=== PATIENT | male | born 1960 | race Caucasian/White ===

== ENCOUNTER → 2016-08-20 | Outpatient (CLI) | payer MEDICAID, OTHER ==
[~2016-08-20] MED LIST: Albuterol 0.083% 2.5 MG/3 ML Neb Soln NEB ONE
== END ==
LOC: MW.RT 07:44
PROVIDERS: ATTEND Internal Medicine
DX: J43.9 Emphysema, unspecified (principal)
CPT/HCPCS: 94060; 94729

== ENCOUNTER 2021-10-18 23:55 | Inpatient (IN) | payer MEDICARE, OTHER ==
[2021-10-19] MEDS ORDERED: methylPREDNISolone Sodium Succinate 40 MG/1 ML SDV IVPUSH ONE (00:16)
[2021-10-19] MEDS ORDERED: Albuterol/Ipratropium 3.0-0.5 MG/3 ML Neb Soln NEB ONE ×2 (00:16→01:15)
[2021-10-19 01:53] LABS: BLOOD UREA NITROGEN,BUN 6 mg/dL (7.0-18.0); CARBON DIOXIDE,CO2 26.5 mmol/L (21.0-32.0); CHLORIDE,CL 75 mmol/L (98-107); GLUCOSE RANDOM 86 mg/dL (74-106); POTASSIUM,K 4.4 mmol/L (3.5-5.1)
[2021-10-19 01:59] LABS: SODIUM,NA 109 mmol/L (136-148)
[2021-10-19] MEDS ORDERED: Doxycycline 100 MG in Sodium Chloride 0.9% 100 ML IV STA (02:09)
[2021-10-19] MEDS ORDERED: Sodium Chloride 0.9% 1,000 ML IV SCH (02:15)
[2021-10-19] MEDS: Albuterol/Ipratropium 3.0-0.5 MG/3 ML Neb Soln NEB PRN ×2 (07:43→17:06)
[2021-10-19 07:57] LABS: BLOOD UREA NITROGEN,BUN 9 mg/dL (7.0-18.0); CARBON DIOXIDE,CO2 19.6 mmol/L (21.0-32.0); CHLORIDE,CL 78 mmol/L (98-107); GLUCOSE RANDOM 117 mg/dL (74-106); POTASSIUM,K 4.9 mmol/L (3.5-5.1)
[2021-10-19 08:00] LABS: SODIUM,NA 109 mmol/L (136-148)
[2021-10-19] MEDS: Nicotine 14 MG/24 Hr Patch TRDERM SCH (09:21)
[2021-10-19] MEDS ORDERED: LORazepam 2 MG/ML SDV IVPUSH PRN (09:27)
[2021-10-19] MEDS: Folic Acid 50 MG/10 ML MDV SUBCUT SCH (11:15)
[2021-10-19] MEDS: Thiamine 200 MG/2 ML MDV IVPUSH SCH (11:30)
[2021-10-19 12:56] LABS: BLOOD UREA NITROGEN,BUN 10 mg/dL (7.0-18.0); CHLORIDE,CL 79 mmol/L (98-107); GLUCOSE RANDOM 101 mg/dL (74-106)
[2021-10-19 12:58] LABS: SODIUM,NA 108 mmol/L (136-148)
[2021-10-19] MEDS ORDERED: Sodium Chloride 3% 500 ML IV SCH (13:30)
[2021-10-19] MEDS: Heparin Sodium 5,000 Units/ML Vial SUBCUT SCH ×2 (14:35→21:03)
[2021-10-19] MEDS: Doxycycline 100 MG Cap PO SCH ×2 (14:35→20:25)
[2021-10-19 18:15] LABS: BLOOD UREA NITROGEN,BUN 12 mg/dL (7.0-18.0); CARBON DIOXIDE,CO2 25.3 mmol/L (21.0-32.0); CHLORIDE,CL 81 mmol/L (98-107); GLUCOSE RANDOM 113 mg/dL (74-106); POTASSIUM,K 4.8 mmol/L (3.5-5.1)
[2021-10-19 18:18] LABS: SODIUM,NA 113 mmol/L (136-148)
[2021-10-19] MEDS: FORMOTEROL INH SCH (20:32)
[2021-10-19] MEDS: BUDESONIDE INH SCH (20:32)
[2021-10-19] MEDS: Dextrose 5% in Water 1,000 ML IV SCH (22:52)
[2021-10-20] MEDS: Albuterol/Ipratropium 3.0-0.5 MG/3 ML Neb Soln NEB PRN ×3 (01:21→20:16)
[2021-10-20] MEDS: Heparin Sodium 5,000 Units/ML Vial SUBCUT SCH ×3 (05:49→20:53)
[2021-10-20] MEDS: Thiamine 200 MG/2 ML MDV IVPUSH SCH (08:00)
[2021-10-20] MEDS: FORMOTEROL INH SCH ×2 (08:01→20:08)
[2021-10-20] MEDS: Nicotine 14 MG/24 Hr Patch TRDERM SCH (08:01)
[2021-10-20] MEDS: Folic Acid 50 MG/10 ML MDV SUBCUT SCH (08:01)
[2021-10-20] MEDS: methylPREDNISolone Sodium Succinate 40 MG/1 ML SDV IVPUSH SCH (08:01)
[2021-10-20] MEDS: BUDESONIDE INH SCH ×2 (08:01→20:08)
[2021-10-20] MEDS: Doxycycline 100 MG Cap PO SCH ×2 (08:02→20:07)
[2021-10-20] MEDS: Dextrose 5% in Water 1,000 ML IV SCH (09:33)
[2021-10-20 14:35] LABS: BLOOD UREA NITROGEN,BUN 16 mg/dL (7.0-18.0); CARBON DIOXIDE,CO2 25.9 mmol/L (21.0-32.0); CHLORIDE,CL 85 mmol/L (98-107); GLUCOSE RANDOM 196 mg/dL (74-106); POTASSIUM,K 3.8 mmol/L (3.5-5.1)
[2021-10-20 14:41] LABS: SODIUM,NA 117 mmol/L (136-148)
[2021-10-20] MEDS ORDERED: Lisinopril 10 MG Tab PO ONE (20:00)
[2021-10-20 21:52] LABS: BLOOD UREA NITROGEN,BUN 16 mg/dL (7.0-18.0); CARBON DIOXIDE,CO2 25.3 mmol/L (21.0-32.0); CHLORIDE,CL 87 mmol/L (98-107); GLUCOSE RANDOM 186 mg/dL (74-106); POTASSIUM,K 3.6 mmol/L (3.5-5.1); SODIUM,NA 121 mmol/L (136-148)
[2021-10-20] MEDS: guaiFENesin/Dextromethorphan 100-10 MG/5 ML Soln 10 ML Cup PO PRN (22:16)
[2021-10-21] MEDS: guaiFENesin/Dextromethorphan 100-10 MG/5 ML Soln 10 ML Cup PO PRN ×3 (03:53→20:28)
[2021-10-21] MEDS: Albuterol/Ipratropium 3.0-0.5 MG/3 ML Neb Soln NEB PRN ×3 (03:57→20:38)
[2021-10-21] MEDS: Heparin Sodium 5,000 Units/ML Vial SUBCUT SCH ×3 (05:55→20:49)
[2021-10-21 07:45] LABS: BLOOD UREA NITROGEN,BUN 13 mg/dL (7.0-18.0); CARBON DIOXIDE,CO2 26.5 mmol/L (21.0-32.0); CHLORIDE,CL 90 mmol/L (98-107); GLUCOSE RANDOM 107 mg/dL (74-106); POTASSIUM,K 3.4 mmol/L (3.5-5.1); SODIUM,NA 126 mmol/L (136-148)
[2021-10-21] MEDS: Nicotine 14 MG/24 Hr Patch TRDERM SCH (08:00)
[2021-10-21] MEDS: methylPREDNISolone Sodium Succinate 40 MG/1 ML SDV IVPUSH SCH (08:00)
[2021-10-21] MEDS: Folic Acid 50 MG/10 ML MDV SUBCUT SCH (08:00)
[2021-10-21] MEDS: Thiamine 200 MG/2 ML MDV IVPUSH SCH (08:01)
[2021-10-21] MEDS: Doxycycline 100 MG Cap PO SCH ×2 (08:01→20:27)
[2021-10-21] MEDS: BUDESONIDE INH SCH ×2 (08:02→20:28)
[2021-10-21] MEDS: FORMOTEROL INH SCH ×2 (08:02→20:28)
[2021-10-21] MEDS ORDERED: Potassium Chloride 10% 20 MEQ/15 ML Soln 30 ML UD Cup PO ONE (08:24)
[2021-10-21] MEDS ORDERED: Potassium Chloride Riders 20 MEQ in Premix Bag 1 BAG IV ONE (08:26)
[2021-10-21] MEDS ORDERED: Dextrose 5% in Water 1,000 ML IV SCH (08:30)
[2021-10-21] MEDS ORDERED: Potassium Chloride 20 MEQ Tab.ER PO ONE (09:47)
[2021-10-21] MEDS ORDERED: Lisinopril 10 MG Tab PO ONE (15:00)
[2021-10-21] MEDS: Melatonin 3 MG Tab PO PRN (21:31)
[2021-10-21 22:32] LABS: BLOOD UREA NITROGEN,BUN 19 mg/dL (7.0-18.0); CHLORIDE,CL 91 mmol/L (98-107); GLUCOSE RANDOM 137 mg/dL (74-106); POTASSIUM,K 4.4 mmol/L (3.5-5.1); SODIUM,NA 127 mmol/L (136-148)
[2021-10-22] MEDS: Heparin Sodium 5,000 Units/ML Vial SUBCUT SCH ×3 (05:15→21:08)
[2021-10-22] MEDS: guaiFENesin/Dextromethorphan 100-10 MG/5 ML Soln 10 ML Cup PO PRN (05:15)
[2021-10-22 06:24] LABS: BLOOD UREA NITROGEN,BUN 15 mg/dL (7.0-18.0); CARBON DIOXIDE,CO2 31.2 mmol/L (21.0-32.0); CHLORIDE,CL 93 mmol/L (98-107); GLUCOSE RANDOM 96 mg/dL (74-106); SODIUM,NA 128 mmol/L (136-148)
[2021-10-22] MEDS: Thiamine 200 MG/2 ML MDV IVPUSH SCH (08:54)
[2021-10-22] MEDS: methylPREDNISolone Sodium Succinate 40 MG/1 ML SDV IVPUSH SCH (08:54)
[2021-10-22] MEDS: Folic Acid 50 MG/10 ML MDV SUBCUT SCH (08:54)
[2021-10-22] MEDS: Doxycycline 100 MG Cap PO SCH ×2 (08:54→21:08)
[2021-10-22] MEDS: Nicotine 14 MG/24 Hr Patch TRDERM SCH (08:55)
[2021-10-22] MEDS: FORMOTEROL INH SCH ×2 (09:37→21:09)
[2021-10-22] MEDS: BUDESONIDE INH SCH ×2 (09:37→21:09)
[2021-10-22] MEDS ORDERED: Albuterol 8 GM Inhaler INH PRN (15:06)
[2021-10-22] MEDS ORDERED: Lisinopril 10 MG Tab PO ONE (15:12)
[2021-10-22 16:41] LABS: BLOOD UREA NITROGEN,BUN 17 mg/dL (7.0-18.0); CARBON DIOXIDE,CO2 29.4 mmol/L (21.0-32.0); CHLORIDE,CL 90 mmol/L (98-107); GLUCOSE RANDOM 117 mg/dL (74-106); POTASSIUM,K 4.3 mmol/L (3.5-5.1); SODIUM,NA 127 mmol/L (136-148)
[2021-10-22] MEDS: Melatonin 3 MG Tab PO PRN (21:30)
[2021-10-22] MEDS: Albuterol/Ipratropium 3.0-0.5 MG/3 ML Neb Soln NEB PRN (21:30)
[2021-10-23] MEDS: Heparin Sodium 5,000 Units/ML Vial SUBCUT SCH (06:12)
[2021-10-23 06:29] LABS: BLOOD UREA NITROGEN,BUN 22 mg/dL (7.0-18.0); CARBON DIOXIDE,CO2 25.7 mmol/L (21.0-32.0); CHLORIDE,CL 92 mmol/L (98-107); GLUCOSE RANDOM 97 mg/dL (74-106); POTASSIUM,K 4.1 mmol/L (3.5-5.1); SODIUM,NA 126 mmol/L (136-148)
[2021-10-23 07:58] VITALS: BP 159/64; PULSE 75
[2021-10-23] MEDS: Nicotine 14 MG/24 Hr Patch TRDERM SCH (08:50)
[2021-10-23] MEDS: Doxycycline 100 MG Cap PO SCH (08:50)
[2021-10-23] MEDS: methylPREDNISolone Sodium Succinate 40 MG/1 ML SDV IVPUSH SCH (08:51)
[2021-10-23] MEDS: BUDESONIDE INH SCH (08:55)
[2021-10-23] MEDS: FORMOTEROL INH SCH (08:55)
[2021-10-23] MEDS ORDERED: Thiamine 100 MG Tab PO SCH (09:00)
[2021-10-23] MEDS ORDERED: Folic Acid 1 MG Tab PO SCH (09:00)
== END 2021-10-23 11:00 | disposition home or self-care (01) | DRG 191 ==
LOC: MW.ED 23:55 → MW.MS 10-19 02:33 → MW.ICU 10-19 11:09 → MW.MS 10-22 14:55
PROVIDERS: ADMIT Internal Medicine; ATTEND Internal Medicine
DX: J44.1 Chronic obstructive pulmonary disease with (acute) exacerbation (principal); J43.9 Emphysema, unspecified; E87.1 Hypo-osmolality and hyponatremia; Z79.51 Long term (current) use of inhaled steroids; F10.230 Alcohol dependence with withdrawal, uncomplicated; I10 Essential (primary) hypertension; Z20.822 Contact with and (suspected) exposure to COVID-19; F17.210 Nicotine dependence, cigarettes, uncomplicated; I11.0 Hypertensive heart disease with heart failure; I50.9 Heart failure, unspecified; Z79.52 Long term (current) use of systemic steroids; Z79.899 Other long term (current) drug therapy; Z87.01 Personal history of pneumonia (recurrent); Z86.19 Personal history of other infectious and parasitic diseases
CPT/HCPCS: 36415; 71045; 80048; 83735; 83880; 84484; 85025; 93005; 96375; 99285; J2920; J7030; U0002; 80053; 84100; 84295; 85027; 87040; 93306; 94640; 96365; 99291; A9270-GY; J1644; J2060; J3411; J3490; J7060; J7131; J7620-GY

== ENCOUNTER 2022-11-18 20:50 | Emergency (ER) | payer MEDICARE, OTHER ==
[2022-11-18] MEDS ORDERED: LORazepam 1 MG Tab PO ONE (22:07)
[2022-11-18 22:09] LABS: HEMATOCRIT 37.5 % (38.0-50.0); HEMOGLOBIN 11.9 g/dL (13.0-17.0); MEAN CORPUSCULAR HEMOGLOBIN 33.3 pg (27.0-32.0); MEAN CORPUSCULAR HGB CONC 31.7 g/dL (31.0-37.0); PLATELET COUNT,PLT 237 K/uL (150-400); RED BLOOD CELL COUNT 3.57 M/uL (4.50-5.90); WHITE BLOOD CELL COUNT,WBC 12.99 K/uL (4.0-11.0)
[2022-11-18 22:40] LABS: A/G RATIO 0.9 (0.9-1.6); ALBUMIN 3.5 g/dL (3.4-5.0); BILIRUBIN TOTAL 0.3 mg/dL (0.2-1.0); C-REACTIVE PROTEIN 1.6 mg/dL (0.00-0.90); CALCIUM 8.4 mg/dL (8.5-10.1); CARBON DIOXIDE,CO2 26.6 mmol/L (21.0-32.0); CREATININE 4.4 mg/dL (0.8-1.3); EST CRCL DRUG DOSING (CG) 15.86 mL/min; POTASSIUM,K 4.8 mmol/L (3.5-5.1); PROTEIN TOTAL,TP 7.6 g/dL (6.4-8.2)
[2022-11-18 23:35] VITALS: BP 159/67; PULSE 63
== END 2022-11-18 23:35 | disposition home or self-care (01) ==
LOC: MW.ED 20:50
DX: H54.62 Unqualified visual loss, left eye, normal vision right eye (principal); I11.0 Hypertensive heart disease with heart failure; I50.9 Heart failure, unspecified; J43.9 Emphysema, unspecified; Z79.899 Other long term (current) drug therapy
CPT/HCPCS: 36415; 70450; 80053; 85027; 85652; 86140; 99284; A9270

== ENCOUNTER 2022-12-16 16:30 | Emergency (ER) | payer MEDICARE, OTHER ==
[2022-12-16] MEDS ORDERED: 50% Dextrose in Water 50 ML Syringe ONE (16:33)
[2022-12-16] MEDS ORDERED: Furosemide 20 MG/2 ML VIAL IVPUSH ONE (16:36)
[2022-12-16] MEDS ORDERED: methylPREDNISolone Sodium Succinate 125 MG/2 ML SDV IVPUSH ONE (16:37)
[2022-12-16] MEDS ORDERED: Calcium Gluconate 10% 1 GM/10 ML SDV IVPUSH ONE ×2 (16:49→18:23)
[2022-12-16] MEDS ORDERED: 50% Dextrose in Water 50 ML Syringe IVPUSH STA ×2 (16:52→16:53)
[2022-12-16 16:59] LABS: BICARBONATE,ARTERIAL 22 mEq/L (22-26); PCO2 ARTERIAL 51 mmHG (35-45); PO2 ARTERIAL 398 mmHG (80-105)
[2022-12-16 17:18] LABS: BASOPHILS PERCENT AUTO 0.2 % (0.0-1.5); EOSINOPHILS ABSOLUTE AUTO 0.1 K/uL (0.0-0.7); EOSINOPHILS PERCENT AUTO 0.3 % (0.0-7.0); HEMATOCRIT 38.6 % (38.0-50.0); HEMOGLOBIN 12.1 g/dL (13.0-17.0); LYMPHOCYTES ABSOLUTE AUTO 1.3 K/uL (0.6-2.4); LYMPHOCYTES PERCENT AUTO 7.3 % (16.0-40.0); MEAN CORPUSCULAR HGB CONC 31.3 g/dL (31.0-37.0); MEAN CORPUSCULAR VOLUME 105.2 fL (80.0-98.0); MONOCYTES ABSOLUTE AUTO 1.2 K/uL (0.0-0.8); MONOCYTES PERCENT AUTO 6.6 % (0.0-15.0); NEUTROPHILS PERCENT AUTO 85.6 % (48.0-80.0); NRBC ABSOLUTE 0 K/uL; PLATELET COUNT,PLT 219 K/uL (150-400); RED BLOOD CELL COUNT 3.67 M/uL (4.50-5.90)
[2022-12-16 17:18] LABS: COLOR,URINE YELLOW; GLUCOSE,URINE NEGATIVE (NEGATIVE); KETONES,URINE TRACE mg/dL (NEGATIVE); LEUKOCYTE ESTERASE,URINE NEGATIVE (NEGATIVE); NITRITE,URINE NEGATIVE (NEGATIVE); OCCULT BLOOD,URINE TRACE-INTACT (NEGATIVE); PH,URINE 5.5 (5.0-8.0); PROTEIN,URINE TRACE mg/dL (NEGATIVE); UROBILINOGEN,URINE 0.2 EU/dL (<2.0)
[2022-12-16 17:34] LABS: APPEARANCE,URINE HAZY; BILIRUBIN,URINE SMALL (NEGATIVE)
[2022-12-16 17:35] LABS: BACTERIA,URINE FEW (NEGATIVE); EPITHELIAL CELLS,URINE OCCASIONAL (NONE-FEW); WBC,URINE 0-3 (0-5/HPF)
[2022-12-16 17:43] LABS: A/G RATIO 0.8 (0.9-1.6); ALANINE AMINOTRANSFERASE,ALT 158 IU/L (14-63); ALBUMIN 3.1 g/dL (3.4-5.0); ALKALINE PHOSPHATASE 104 U/L (46-116); ASPARTATE AMNIOTRANSFERASE,AST 175 IU/L (15-37); BILIRUBIN TOTAL 0.8 mg/dL (0.2-1.0); BLOOD UREA NITROGEN,BUN 51 mg/dL (7.0-18.0); CALCIUM 8.3 mg/dL (8.5-10.1); CARBON DIOXIDE,CO2 24.5 mmol/L (21.0-32.0); CHLORIDE,CL 97 mmol/L (98-107); EST CRCL DRUG DOSING (CG) 14.93 mL/min; GLUCOSE RANDOM 240 mg/dL (74-106); MAGNESIUM 2.1 mg/dL (1.8-2.4); PROTEIN TOTAL,TP 7.1 g/dL (6.4-8.2); SODIUM,NA 134 mmol/L (136-148)
[2022-12-16 17:47] LABS: INR 1.27 (0.86-1.11)
[2022-12-16 17:58] LABS: ESTIMATED GFR 12 mL/min (>60); ETHANOL BLOOD MEDICAL < 3.0 mg/dL; POTASSIUM,K 7.9 mmol/L (3.5-5.1)
[2022-12-16 17:59] LABS: LACTIC ACID 2.7 mmol/L (0.4-2.0)
[2022-12-16] MEDS ORDERED: Sodium Polystyrene Sulfonate 15 GM/60 ML Susp 60 ML Bot PO ONE (18:03)
[2022-12-16] MEDS ORDERED: Insulin Regular, Human 100 Units/ML 10 ML Vial IVPUSH ONE (18:03)
[2022-12-16] MEDS ORDERED: 50% Dextrose in Water 50 ML Syringe IVPUSH ONE ×2 (18:04→21:06)
[2022-12-16] MEDS: Calcium Chloride 10% 1 GM/10 ML Syringe IVPUSH ONE ×2 (18:14→18:37)
[2022-12-16] MEDS ORDERED: Albuterol 0.083% 2.5 MG/3 ML Neb Soln NEB ONE (19:24)
[2022-12-16] MEDS ORDERED: Piperacillin/Tazobactam 3.375 GM in Sodium Chloride 0.9% 100 ML IV ONE (20:02)
[2022-12-16 20:38] LABS: CARBON DIOXIDE,CO2 20.5 mmol/L (21.0-32.0); CREATININE 5.1 mg/dL (0.8-1.3); EST CRCL DRUG DOSING (CG) 14.63 mL/min; POTASSIUM,K 6.5 mmol/L (3.5-5.1)
[2022-12-16 21:35] VITALS: BP 137/60; PULSE 61
== END 2022-12-16 22:25 ==
LOC: MW.ED 16:30
DX: E87.5 Hyperkalemia (principal); J44.9 Chronic obstructive pulmonary disease, unspecified; I11.0 Hypertensive heart disease with heart failure; I50.9 Heart failure, unspecified; Z20.822 Contact with and (suspected) exposure to COVID-19
CPT/HCPCS: 36415; 36600; 51702; 71045; 80048; 80053; 80307; 81001; 82803; 82947; 83605; 83735; 83880; 84484; 85025; 85610; 85730; 87040; 93005; 96365; 96375; 96376; 99285; A9270; J0612; J1940; J2543; J2930; J3490; U0002; 93010; 99291; J1815-GY; J7620-GY

== ENCOUNTER 2023-02-04 17:44 | Emergency (ER) | payer MEDICARE, OTHER ==
[2023-02-04] MEDS ORDERED: HYDROmorphone 1 MG/ML Syringe IVPUSH ONE ×2 (17:47→18:44)
[2023-02-04] MEDS ORDERED: Diphtheria,Pertussis(Acell),Tetanus Vaccine 0.5 ML Syringe IM ONE (17:47)
[2023-02-04] MEDS ORDERED: Acetaminophen 325 MG Tab PO ONE (17:47)
[2023-02-04] MEDS ORDERED: Bacitracin Oint 28.35 GM Tube TOP SCH ×2 (18:00→22:00)
[2023-02-04 18:58] LABS: BASOPHILS ABSOLUTE AUTO 0.1 K/uL (0.0-0.1); BASOPHILS PERCENT AUTO 0.5 % (0.0-1.5); EOSINOPHILS PERCENT AUTO 0.4 % (0.0-7.0); LYMPHOCYTES ABSOLUTE AUTO 1.3 K/uL (0.6-2.4); MEAN CORPUSCULAR HEMOGLOBIN 32.6 pg (27.0-32.0); MEAN CORPUSCULAR HGB CONC 31.6 g/dL (31.0-37.0); MEAN CORPUSCULAR VOLUME 103.3 fL (80.0-98.0); MONOCYTES ABSOLUTE AUTO 1.3 K/uL (0.0-0.8); MONOCYTES PERCENT AUTO 11.5 % (0.0-15.0); NEUTROPHILS ABSOLUTE AUTO 8.4 K/uL (1.4-5.7); NEUTROPHILS PERCENT AUTO 75.6 % (48.0-80.0); NRBC ABSOLUTE 0 K/uL; PLATELET COUNT,PLT 347 K/uL (150-400); RED BLOOD CELL COUNT 3.68 M/uL (4.50-5.90); WHITE BLOOD CELL COUNT,WBC 11.07 K/uL (4.0-11.0)
[2023-02-04] MEDS ORDERED: HYDROmorphone 1 MG/ML Syringe ONE (19:07)
[2023-02-04 19:12] LABS: INR 1.17 (0.86-1.11)
[2023-02-04] MEDS ORDERED: HYDROmorphone 2 MG/ML Syringe IVPUSH ONE (19:18)
[2023-02-04 19:32] LABS: A/G RATIO 0.8 (0.9-1.6); ALBUMIN 3.6 g/dL (3.4-5.0); BILIRUBIN TOTAL 0.6 mg/dL (0.2-1.0); CALCIUM 9.1 mg/dL (8.5-10.1); CARBON DIOXIDE,CO2 28.5 mmol/L (21.0-32.0); CREATININE 4.3 mg/dL (0.8-1.3); EST CRCL DRUG DOSING (CG) 15.47 mL/min; MAGNESIUM 1.7 mg/dL (1.8-2.4); POTASSIUM,K 4.4 mmol/L (3.5-5.1); PROTEIN TOTAL,TP 8.4 g/dL (6.4-8.2)
[2023-02-04 21:36] VITALS: BP 130/78; PULSE 78
== END 2023-02-04 21:35 | disposition home or self-care (01) ==
LOC: MW.ED 17:44
DX: S42.202A Unspecified fracture of upper end of left humerus, initial encounter for closed fracture (principal); S01.81XA Laceration without foreign body of other part of head, initial encounter; S50.12XA Contusion of left forearm, initial encounter; S50.11XA Contusion of right forearm, initial encounter; S80.02XA Contusion of left knee, initial encounter; S80.01XA Contusion of right knee, initial encounter; I11.0 Hypertensive heart disease with heart failure; I50.9 Heart failure, unspecified; J43.9 Emphysema, unspecified; Z79.02 Long term (current) use of antithrombotics/antiplatelets; Z79.899 Other long term (current) drug therapy; Z23 Encounter for immunization; W05.0XXA Fall from non-moving wheelchair, initial encounter
CPT/HCPCS: 36415; 70450; 70450-26; 71045; 71045-26; 72125; 72125-26; 73030-26-LT; 73030-LT; 73070-26-LT; 73070-LT; 735602650; 73560-50; 80053; 83690; 83735; 84484; 85025; 85610; 86850; 86900; 86901; 90471; 90715; 96374; 96376; 99284; 99284-25; A9270-GY; J1170

== ENCOUNTER 2023-02-06 13:04 | Emergency (ER) | payer MEDICARE, OTHER ==
[2023-02-06] MEDS ORDERED: Sodium Chloride 0.9% 2.5 ML Syringe FLUSH PRN (13:17)
[2023-02-06] MEDS ORDERED: Sodium Chloride 0.9% 10 ML Syringe FLUSH PRN (13:17)
[2023-02-06] MEDS ORDERED: Cefepime 2 GM Vial IVPUSH ONE (13:22)
[2023-02-06 13:48] LABS: BASE EXCESS VENOUS -2.9 (-2.0-3.0); PH,VENOUS 7.26 (7.31-7.41)
[2023-02-06 13:51] LABS: HEMATOCRIT 35.8 % (38.0-50.0); HEMOGLOBIN 11.1 g/dL (13.0-17.0); MEAN CORPUSCULAR HEMOGLOBIN 32.4 pg (27.0-32.0); MEAN CORPUSCULAR VOLUME 104.4 fL (80.0-98.0); NRBC ABSOLUTE 0 K/uL; PLATELET COUNT,PLT 324 K/uL (150-400); RED BLOOD CELL COUNT 3.43 M/uL (4.50-5.90)
[2023-02-06 13:58] LABS: INR 1.17 (0.86-1.11)
[2023-02-06] MEDS ORDERED: Sodium Chloride 0.9% 500 ML IV SCH (14:00)
[2023-02-06 14:15] LABS: A/G RATIO 0.8 (0.9-1.6); ALBUMIN 3.2 g/dL (3.4-5.0); BILIRUBIN TOTAL 0.6 mg/dL (0.2-1.0); CALCIUM 8.8 mg/dL (8.5-10.1); CARBON DIOXIDE,CO2 23.2 mmol/L (21.0-32.0); EST CRCL DRUG DOSING (CG) 7.81 mL/min; POTASSIUM,K 5.8 mmol/L (3.5-5.1); PROTEIN TOTAL,TP 7.4 g/dL (6.4-8.2)
[2023-02-06 14:24] LABS: MAGNESIUM 1.9 mg/dL (1.8-2.4); TSH ULTRASENSITIVE 1.16 uIU/mL (0.36-3.74)
[2023-02-06] MEDS ORDERED: Cefepime 2 GM in Sodium Chloride 0.9% 50 ML IV ONE (14:26)
[2023-02-06] MEDS ORDERED: Sodium Chloride 0.9% 50 ML ONE (14:29)
[2023-02-06] MEDS ORDERED: VANCOmycin 1.25 GM/250 ML 1.25 GM in Premix Bag 1 BAG IV ONE (14:30)
[2023-02-06] MEDS ORDERED: Calcium Gluconate 10% 1 GM/10 ML SDV IVPUSH ONE (14:35)
[2023-02-06 14:44] LABS: BASOPHILS ABSOLUTE MAN 0.2 (0.0-0.1); BASOPHILS PERCENT MAN 1 % (0.0-1.5); EOSINOPHILS ABSOLUTE MAN 0.5 (0.0-0.7); EOSINOPHILS PERCENT MAN 3 % (0.0-7.0); LYMPHOCYTES PERCENT MAN 11 % (16.0-40.0); MONOCYTES ABSOLUTE MAN 1.4 (0.0-0.8); MONOCYTES PERCENT MAN 8 % (0.0-15.0); SEG NEUTROPHILS ABSOLUTE MAN 13.7 (1.4-5.7); SEG NEUTROPHILS PERCENT MAN 77 % (48.0-80.0)
[2023-02-06] MEDS ORDERED: Albuterol/Ipratropium 3.0-0.5 MG/3 ML Neb Soln NEB ONE (15:19)
[2023-02-06 16:03] LABS: ACETAMINOPHEN <2.0 ug/mL; SALICYLATE 2.6 mg/dL (0.0-20.0)
[2023-02-06 16:05] LABS: ETHANOL BLOOD MEDICAL < 3.0 mg/dL
[2023-02-06] MEDS ORDERED: Iopamidol 755 MG/ML 500 ML Multipack Bottle IVPUSH STA (16:41)
[2023-02-06 21:04] VITALS: BP 120/70; PULSE 56
== END 2023-02-06 21:47 ==
LOC: MW.ED 13:04
DX: S41.112A Laceration without foreign body of left upper arm, initial encounter (principal); S41.111A Laceration without foreign body of right upper arm, initial encounter; S40.012A Contusion of left shoulder, initial encounter; R55 Syncope and collapse; T40.2X5A Adverse effect of other opioids, initial encounter; T42.4X5A Adverse effect of benzodiazepines, initial encounter; T38.0X5A Adverse effect of glucocorticoids and synthetic analogues, initial encounter; I11.0 Hypertensive heart disease with heart failure; I50.9 Heart failure, unspecified; J44.9 Chronic obstructive pulmonary disease, unspecified; A41.9 Sepsis, unspecified organism; I25.10 Atherosclerotic heart disease of native coronary artery without angina pectoris; E87.5 Hyperkalemia; E87.1 Hypo-osmolality and hyponatremia; Z79.51 Long term (current) use of inhaled steroids; Z79.899 Other long term (current) drug therapy; Z20.822 Contact with and (suspected) exposure to COVID-19; W19.XXXA Unspecified fall, initial encounter; Y92.481 Parking lot as the place of occurrence of the external cause
CPT/HCPCS: 36415; 70450; 71045; 71260; 74177; 80053; 80143; 80179; 80307; 82140; 82803; 82947; 83605; 83690; 83735; 84443; 84484; 85025; 85610; 87040; 93005; 94640; 96365; 96367; 96375; 99285; J0612; J0692; J3370; J3490; J7040; Q9967; U0002; 93010; 99291; J7620-GY